=== PATIENT | female | born 1990 | race African-American/Black ===

== ENCOUNTER 2020-05-13 16:30 | Emergency (ER) | payer MEDICAID ==
[~2020-05-13] VITALS: Ht 160 cm; Wt 52.0 kg
[2020-05-13] MEDS ORDERED: SODIUM CHLORIDE 0.9% 1,000 ML IV ONE (17:23)
[2020-05-13] MEDS ORDERED: KETOROLAC 30MG/ML VIAL IV STA (17:23)
[2020-05-13] MEDS ORDERED: METOCLOPRAMIDE HCL 10MG/2ML VIAL IV ONE (17:30)
[2020-05-13 17:41] LABS: CLARITY URINE CLOUDY (CLEAR); COLOR URINE YELLOW (YELLOW); KETONES URINE TRACE (NEGATIVE); LEUKOCYTE ESTERASE URINE 2+ (NEGATIVE); NITRITE URINE NEGATIVE (NEGATIVE); OCCULT BLOOD URINE NEGATIVE (NEGATIVE); PH URINE 6.5 (4.5-8.0); PROTEIN URINE TRACE (NEGATIVE); SPECIFIC GRAVITY URINE 1.029 (1.005-1.030)
[2020-05-13 18:43] LABS: BASOPHILS % 0.8 % (0.0-2.0); EOSINOPHILS % 0.5 % (0.0-5.0); HEMATOCRIT. 38.2 % (36.0-48.0); HEMOGLOBIN. 12.7 g/dL (12.0-16.0); LYMPHOCYTES % 53.6 % (20.0-50.0); MEAN CORPUSCULAR HEMOGLOBIN 26.1 pg (28.0-32.0); MEAN CORPUSCULAR VOLUME 78.3 fL (81.0-99.0); MEAN PLATELET VOLUME 9.3 fl (7.4-10.4); MONOCYTES % 6.8 % (2.0-8.0); NEUTROPHILS % 38.3 % (40.0-76.0); PLATELET 186 x1000/uL (130-400); RED BLOOD CELL COUNT 4.87 mill/uL (4.2-5.4); RED CELL DISTRIBUTION WIDTH 13.8 % (11.6-14.6)
[2020-05-13 18:45] LABS: CHLORIDE 103 mEq/L (98-107)
[2020-05-13] MEDS ORDERED: CEFTRIAXONE SODIUM 250 MG/VIAL IM ONE (19:15)
[2020-05-13] MEDS ORDERED: AZITHROMYCIN 500 MG TABLET PO ONE (19:15)
[2020-05-13] MEDS ORDERED: METRONIDAZOLE 500MG TABLET PO ONE (19:15)
[2020-05-13] MEDS ORDERED: LIDOCAINE HCL/PF 1% 10 MG/ML 5ML VIAL IJ ONE (19:15)
[2020-05-13] MEDS ORDERED: METRONIDAZOLE 500MG TABLET PO NR (19:45)
[2020-05-13 20:10] VITALS: BP 106/64
[2020-05-14 12:42] LABS: UCG SCREEN NEGATIVE
[2020-05-16 04:14] LABS: NEISSERIA GONORRHOEAE NAA Negative (Negative)
== END 2020-05-13 20:11 | disposition home or self-care (01) ==
LOC: ER 16:30
DX: G43.909 Migraine, unspecified, not intractable, without status migrainosus (principal); R11.2 Nausea with vomiting, unspecified; N39.0 Urinary tract infection, site not specified; A64 Unspecified sexually transmitted disease; N89.8 Other specified noninflammatory disorders of vagina
CPT/HCPCS: 36415; 80053; 81003; 81025; 85025; 87210; 87491; 87591; 96361; 96372; 96374; 96375; 99284; J0696; J1885; J2765; J3490; J7030

== ENCOUNTER 2021-08-11 21:31 | Emergency (ER) | payer MEDICAID, OTHER ==
[~2021-08-11] VITALS: Ht 165.1 cm; Wt 52.4 kg
[2021-08-11] MEDS ORDERED: IBUPROFEN 600MG TABLET PO STA (22:30)
[2021-08-11] MEDS ORDERED: IBUP-2029 PO (23:18)
[2021-08-12 00:15] VITALS: BP 125/61
== END 2021-08-12 00:16 | disposition home or self-care (01) ==
LOC: ER 21:31
DX: S90.121A Contusion of right lesser toe(s) without damage to nail, initial encounter (principal); W22.03XA Walked into furniture, initial encounter; Y93.89 Activity, other specified; Y92.011 Dining room of single-family (private) house as the place of occurrence of the external cause
CPT/HCPCS: 73630; 99283